=== PATIENT | female | born 1950 | race Caucasian/White ===

== ENCOUNTER 2019-03-27 20:55 | Emergency (ER) | payer MEDICARE, BC ==
[~2019-03-27] VITALS: Ht 160 cm; Wt 81.0 kg
[2019-03-27 21:09] VITALS: BP 129/70
== END 2019-03-27 22:15 | disposition home or self-care (01) ==
LOC: ER 20:56
DX: T23.201A Burn of second degree of right hand, unspecified site, initial encounter (principal); T23.202A Burn of second degree of left hand, unspecified site, initial encounter; E11.9 Type 2 diabetes mellitus without complications; E03.9 Hypothyroidism, unspecified; Z91.040 Latex allergy status; Z88.8 Allergy status to other drugs, medicaments and biological substances; X11.8XXA Contact with other hot tap-water, initial encounter; Y93.89 Activity, other specified; Y92.89 Other specified places as the place of occurrence of the external cause; Y99.8 Other external cause status
CPT/HCPCS: 99281

== ENCOUNTER 2020-07-07 19:40 | Emergency (ER) | payer MEDICARE, BC ==
[~2020-07-07] VITALS: Ht 157.5 cm; Wt 73.0 kg
[2020-07-07 19:43] VITALS: BP 129/54
[2020-07-07] MEDS ORDERED: LIDOcaine 1% 30ml preserv. free vial IJ ONE (20:00)
== END 2020-07-07 21:11 | disposition home or self-care (01) ==
LOC: ER 19:41
DX: S61.211A Laceration without foreign body of left index finger without damage to nail, initial encounter (principal); E11.9 Type 2 diabetes mellitus without complications; I10 Essential (primary) hypertension; Z91.040 Latex allergy status; Z88.8 Allergy status to other drugs, medicaments and biological substances; W46.0XXA Contact with hypodermic needle, initial encounter; Y93.89 Activity, other specified; Y92.89 Other specified places as the place of occurrence of the external cause; Y99.8 Other external cause status
CPT/HCPCS: 12001; 99282

== ENCOUNTER 2020-07-15 13:59 | Emergency (ER) | payer MEDICARE, BC ==
[~2020-07-15] VITALS: Ht 157.5 cm; Wt 84.6 kg
[2020-07-15 14:40] VITALS: BP 116/87
== END 2020-07-15 16:06 | disposition home or self-care (01) ==
LOC: ER 14:00
DX: S61.211D Laceration without foreign body of left index finger without damage to nail, subsequent encounter (principal); E11.9 Type 2 diabetes mellitus without complications; E05.90 Thyrotoxicosis, unspecified without thyrotoxic crisis or storm; Z88.8 Allergy status to other drugs, medicaments and biological substances; Z91.040 Latex allergy status; X58.XXXD Exposure to other specified factors, subsequent encounter
CPT/HCPCS: 99281

== ENCOUNTER 2020-09-15 13:23 | Emergency (ER) | payer MEDICARE, BC ==
[~2020-09-15] VITALS: Ht 157.5 cm; Wt 80.9 kg
[2020-09-15 13:51] VITALS: BP 118/64
== END 2020-09-15 16:40 | disposition home or self-care (01) ==
LOC: ER 13:24
DX: S92.592A Other fracture of left lesser toe(s), initial encounter for closed fracture (principal); M79.675 Pain in left toe(s); E11.9 Type 2 diabetes mellitus without complications; E05.90 Thyrotoxicosis, unspecified without thyrotoxic crisis or storm; Z88.8 Allergy status to other drugs, medicaments and biological substances; Z91.040 Latex allergy status; X58.XXXA Exposure to other specified factors, initial encounter; Y93.89 Activity, other specified; Y92.89 Other specified places as the place of occurrence of the external cause; Y99.8 Other external cause status
CPT/HCPCS: 73660; 99283

== ENCOUNTER 2022-08-25 11:19 | Emergency (ER) | payer MEDICARE, BC ==
[~2022-08-25] VITALS: Ht 154.9 cm; Wt 75.0 kg
[2022-08-25 11:23] VITALS: BP 121/56
[2022-08-25] MEDS ORDERED: ondansetron 4mg rapidly disintigrating tab PO ONE (14:20)
[2022-08-25] MEDS ORDERED: albuterol 2.5 MG/3 ML nebule NEB ONE (14:25)
[2022-08-25] MEDS ORDERED: ketorolac tromethamine 15mg/ml inj. IM ONE (16:05)
== END 2022-08-25 16:14 | disposition home or self-care (01) ==
LOC: ER 11:19
DX: J06.9 Acute upper respiratory infection, unspecified (principal); Z20.822 Contact with and (suspected) exposure to COVID-19; R11.2 Nausea with vomiting, unspecified; E78.00 Pure hypercholesterolemia, unspecified; E11.9 Type 2 diabetes mellitus without complications; Z88.8 Allergy status to other drugs, medicaments and biological substances; Z91.041 Radiographic dye allergy status
CPT/HCPCS: 71045; 87502; 87503; 87635; 94640; 96372; 99284; C9803; J1885; 94760

== ENCOUNTER 2024-06-01 17:45 | Emergency (ER) | payer MEDICARE, BC ==
[~2024-06-01] VITALS: Ht 157.5 cm; Wt 81.8 kg
[2024-06-01] MEDS: fentaNYL/PF 50MCG/1 ML 2ML syringe IV ONE ×2 (20:02→20:28)
[2024-06-01] MEDS: ondansetron/PF 4mg/2ml inj IV ONE (20:14)
[2024-06-01] MEDS: LIDOcaine 1% W/epiNEPHrine 1:100,000 20ml vial SQ ONE (20:54)
[2024-06-01] MEDS ORDERED: ONDA-243 PO (21:05)
[2024-06-01] MEDS ORDERED: OXYC-150 PO (21:05)
[2024-06-01] MEDS: oxyCODONE/APAP 5-325mg tablet PO ONE (21:10)
[2024-06-01 21:20] VITALS: BP 109/52; PULSE 78; RESP 16; TEMP 98.3; O2SAT 98
== END 2024-06-01 21:23 | disposition home or self-care (01) ==
LOC: ER 17:47
DX: S52.502A Unspecified fracture of the lower end of left radius, initial encounter for closed fracture (principal); E78.00 Pure hypercholesterolemia, unspecified; E11.9 Type 2 diabetes mellitus without complications; Z88.8 Allergy status to other drugs, medicaments and biological substances; Z91.040 Latex allergy status; W19.XXXA Unspecified fall, initial encounter; Y93.89 Activity, other specified; Y92.89 Other specified places as the place of occurrence of the external cause; Y99.8 Other external cause status
CPT/HCPCS: 25605; 73100; 73110; 96374; 96375; 99284; A4565; A6449; J2405; J3010; J7030

== ENCOUNTER 2025-05-11 07:44 | Emergency (ER) | payer MEDICARE, BC ==
[~2025-05-11] VITALS: Ht 157.5 cm; Wt 84.0 kg
[~2025-05-11 07:44] MED LIST: ONDA-243 PO; OXYC-150 PO
[2025-05-11 07:52] VITALS: TEMP 99.8
--- NOTE | 2025-05-11 07:52 | Physician Documentation ---
History of Present Illness ~ Stated Complaint: SHORT OF BREATH Time Seen by MD: 07:50 Primary Medical Doctor: Rm ALEGRIA 74-year-old female presenting with shortness of breath. Her reportedly has an active COVID-19 infection. She did a home test that was negative. Reports having symptoms for the past 10 days. She has had chills, congestion, cough, shortness of breath, fatigue, body aches. She reports worsening cough and shortness of breath over the past couple of days. She does have a history of pneumonia in his concerned that she may have pneumonia again. Otherwise, no history of heart or lung problems. No abdominal pain, nausea vomiting or diarrhea. No chest pain. Medication Reconciliation Allergies: Coded Allergies: epinephrine (Verified Allergy, Unknown, 06/01/24) latex (Verified Allergy, Unknown, 05/11/25) Scheduled Azithromycin (Azithromycin), 1 TAB PO DAILY Scheduled PRN ONDANSETRON ODT 4mg tablet (Ondansetron Odt), 1 TAB PO Q6H PRN PRN for nausea/vomiting Oxycodone HCl/Acetaminophen (Percocet 10-325 mg Tablet), 1 TAB PO QID PRN PRN for pain Past Medical History Past Medical History: High Cholesterol, Diabetes, Hyperthyroidism Past Surgical History: noncontributory Alcohol Use: Rarely Drug Use: none Lives with: Spouse Lives In: Home Occupation: retired Review of Systems Constitutional: Reports: chills Respiratory: Reports: cough, shortness of breath Cardiovascular: Denies: chest pain Gastrointestinal: Denies: abdominal pain Physical Exam Physical Exam General: This is a tired appearing older female, not in acute distress HEENT: Wearing a mask Heart: Regular rate and rhythm, normal-appearing peripheral perfusion Lungs: Coarse breath sounds bilateral, right worse than left, normal work of breathing, frequent harsh cough, normal oxygen saturation on room air Neuro: Alert and oriented Psychiatric: Tired but is cooperative with exam Progress Results/Orders Results/Orders Orders - ABUNDIO FLORES MD Covid19 Binax Poc Result Entry (05/11/25 07:50) Chest,Two Views (05/11/25 07:50) Completed Orders - ABUNDIO FLORES MD Chest,Two Views (05/11/25 07:50) Azithromycin Tablet (Zithromax Tablet) (05/11/25 08:55) Medications Received in ER Medications (Trade) Dose Ordered Sig/Tuyet Route PRN Reason Start Time Stop Time Status Last Admin Dose Admin (Zithromax tablet) 500 mg ONCE ONCE PO 05/11/25 08:55 05/11/25 08:56 DC 05/11/25 08:56 500 MG Vital Signs 05/11/25 05/11/25 05/11/25 07:52 07:59 08:42 Temp 99.8 Pulse 90 86 Resp 20 20 B/P (MAP) 122/58 121/60 (80) Pulse Ox 91 95 O2 Flow Rate 0 0 Laboratory Tests Test 05/11/25 07:55 SARS-CoV-2 Antigen (Rapid) Negative EKG/XRAY/CT/US/VASC/MRI EKG : Additional Comment I personally interpreted the EKG and this shows: Sinus rhythm, rate 93, QTC 416, poor baseline but no clear ischemic changes Chest X-Ray : Additional Comments I personally interpreted the x-ray, and it shows: Coarse thickening consistent with a viral infection, with possible right-sided opacity when compared to previous chest x-ray, no pneumothorax Medical Decision Making Differential Dx:Considerations: Include: anxiety, asthma, CHF, myocardial infarction, pneumonia, upper resp. infection Additional Infomation The patient presents with shortness of breath, in the setting of a recent exposure to COVID-19. She has no chest pain and her EKG is reassuring, making ACS or cardiac related cause less likely. Her primary concern is for pneumonia. Her chest x-ray does show possible right-sided developing opacity as well as thickening consistent with viral type infection. We will treat with azithromycin as well as symptomatic treatment. Otherwise she has normal vitals and appears safe for discharge home. Return precautions given. Departure Time of Disposition: 08:53 Disposition: 01 HOME / SELF CARE / HOMELESS Impression: Primary Impression: COVID-19 Additional Impression: Pneumonia Condition: Stable Referrals: NO PRIMARY CARE PROVIDER (PCP) Prescriptions Azithromycin (Azithromycin) 250 Mg Tablet 1 TAB PO DAILY for 4 Days, #4 TAB Once daily starting tomorrow for 4 days Prov: ABUNDIO FLORES MD 05/11/25 Education Educated: Patient Educated regarding: diagnosis, treatment, need for follow up Signature Scribe Signature: juanis Attestation: ABUNDIO Hammer MD May 11, 2025 07:52
[2025-05-11 08:42] VITALS: BP 121/60; PULSE 86; RESP 20; O2SAT 95
--- NOTE | 2025-05-11 08:43 | RADIOLOGY REPORT ---
EXAM: DI CHEST,TWO VIEWS CLINICAL HISTORY: sob, likely covid COMPARISON: CHEST,SINGLE VIEW on DOS: 08/25/22 TECHNIQUE: Frontal and lateral view of the chest was obtained FINDINGS: Lines and Tubes: None Lungs: Diffuse interstitial opacities. Pleura: No effusion. No pneumothorax. Cardiomediastinal contours: Unremarkable Bones: No acute osseous abnormality. IMPRESSION: Diffuse interstitial opacities which can be in the setting of atypical infection.
[2025-05-11] MEDS ORDERED: AZIT250T83 PO (08:53)
--- NOTE | 2025-05-11 12:39 | ELECTROCARDIOGRAPH REPORT ---
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 Joao Linda Measurements Intervals [place] Rate: 93 P: 61 NM: 148 QRS: 75 QRSD: 95 T: 61 QT: 334 QTc: 416 Interpretive Statements Sinus rhythm Atrial premature complex Low voltage with right axis deviation Minimal ST depression, inferior leads Electronically Signed On 05-12-2025 19:18:[address] Joao Linda Please click the below link to view image of tracing.
[2025-05-13] MEDS ORDERED: METF-1203 PO (11:45)
[2025-05-13] MEDS ORDERED: PIOG45TA65 PO (11:45)
[2025-05-13] MEDS ORDERED: CITA-178 PO (11:45)
[2025-05-13] MEDS ORDERED: ATOR20TA66 PO (11:45)
[2025-05-13] MEDS ORDERED: LEVO137T24 PO (11:45)
== END 2025-05-11 09:01 | disposition home or self-care (01) ==
LOC: ER 07:44
DX: U07.1 COVID-19 (principal); J18.9 Pneumonia, unspecified organism; E11.9 Type 2 diabetes mellitus without complications; E78.00 Pure hypercholesterolemia, unspecified; Z91.040 Latex allergy status
CPT/HCPCS: 36415; 71046; 87811; 93005; 99285